=== PATIENT | female | born 1945 | race Caucasian/White ===

== ENCOUNTER → 2019-03-26 | Outpatient (CLI) | payer MEDICARE, OTHER ==
--- NOTE | 2019-03-26 13:45 | XR ---
EXAMINATION TYPE: XR Hip Limited LT DATE OF EXAM: 03/26/2019 CLINICAL HISTORY: Chronic left hip. Very low back pain TECHNIQUE: AP and frogleg views of the left hip are obtained. COMPARISON: None. FINDINGS: There is no acute fracture/dislocation evident in the left hip. The joint space in the le ft hip appears mildly narrowed in the cephalad direction with acetabular roof sclerosis and very smal l marginal osteophytes. No cam deformity is seen. No suspicious osseous lesion. The overlying soft t issue appears unremarkable. IMPRESSION: 1. No acute fracture or dislocation in the left hip. 2. Mild left femoral acetabular arthropathy.
--- NOTE | 2019-03-26 13:51 | XR ---
EXAMINATION TYPE: XR lumbar spine 2 or 3V DATE OF EXAM: 03/26/2019 CLINICAL HISTORY: Low back pain TECHNIQUE: Frontal and lateral images of the lumbar spine are obtained. COMPARISON: None FINDINGS: There is diffuse osseous demineralization present. Rudimentary 12th ribs are present. Ther e are 5 lumbar type vertebral bodies identified. The lumbar spine shows satisfactory alignment witho ut evidence of acute fracture or dislocation. Vertebral body heights and disk space heights are withi n normal limits. Mild neural foraminal narrowing is present at L5-S1 secondary to facet hypertrophy. Facet hypertrophy is also seen at L4-L5. Minimal atherosclerosis of the abdominal aorta is seen. Mini mal anterior osteophytes are present of the lumbar spine. The overlying soft tissue appears unremark able. IMPRESSION: 1. No acute fracture or dislocation is seen in the lumbar spine. 2. Mild neural foraminal narrowing at L5-S1 secondary to facet hypertrophy. Minimal multilevel degene rative changes the lumbar spine.
== END | disposition home or self-care (01) ==
LOC: RADXRMAIN 13:06
PROVIDERS: ATTEND Family Medicine
DX: M48.061 Spinal stenosis, lumbar region without neurogenic claudication (principal); M47.816 Spondylosis without myelopathy or radiculopathy, lumbar region; M16.12 Unilateral primary osteoarthritis, left hip
CPT/HCPCS: 72100; 73501

== ENCOUNTER → 2019-04-04 | Outpatient (CLI) | payer MEDICARE, OTHER ==
--- NOTE | 2019-04-04 15:01 | MR ---
EXAMINATION TYPE: MR lumbar spine wo con DATE OF EXAM: 04/04/2019 COMPARISON: Prior plain film 03/26/2019 HISTORY: low back pain TECHNIQUE: Multiplanar, multisequence images of the lumbar spine were acquired. L1-L2: Normal disc appearance without desiccation. No herniation, protrusion or disc bulging. No ca nal stenosis is present. Foramina are patent bilaterally. L2-L3: Normal disc appearance without desiccation. No herniation, protrusion or disc bulging. No ca nal stenosis is present. Foramina are patent bilaterally. L3-L4: Normal disc appearance without desiccation. No herniation, protrusion or disc bulging. No ca nal stenosis is present. Foramina are patent bilaterally. L4-L5: Facet arthropathy changes are present with hypertrophy of the ligamentum flavum. No central st enosis. Minimal anterolisthesis grade 1 L4-5. Eccentric disc bulge extends towards the right neural f oramen, there may be some mild encroachment on the right L4 nerve root. L5-S1: There is facet arthropathy present. Circumferential extension of endplate disc complex encroac hes somewhat on the foramina greater on the right than on the left. Minimal posterior broad-based dis c bulge noted. Lumbar segments are intact. No paraspinal masses are identified. Conus medullaris has a normal appe arance. There is loss of disc height and signal at L5-S1 with associated vacuum phenomenon. Mild mult ilevel spondylosis with minimal endplate discogenic marrow signal changes are present. IMPRESSION: Degenerative disc disease and facet arthropathy as described.
== END | disposition home or self-care (01) ==
LOC: RADMRIMAIN 13:14
PROVIDERS: ATTEND Family Medicine
DX: M51.36 Other intervertebral disc degeneration, lumbar region (principal); M46.96 Unspecified inflammatory spondylopathy, lumbar region; M46.97 Unspecified inflammatory spondylopathy, lumbosacral region
CPT/HCPCS: 72148

== ENCOUNTER → 2020-01-28 | Outpatient (CLI) | payer MEDICARE, OTHER ==
--- NOTE | 2020-01-28 11:57 | MM ---
Reason for exam: clinical finding. History: Patient is postmenopausal. Excisional biopsy of the right breast, 1975. Physical Findings: Nurse did not find any significant physical abnormalities on exam. MG 3D Diag Mammo W/Cad AD Bilateral CC and MLO view(s) were taken. There are scattered fibroglandular densities. No significant new findings when compared with previous films. These results were verbally communicated with the patient and result sheet given to the patient on 01/28/20. ASSESSMENT: Benign, BI-RAD 2 RECOMMENDATION: Routine screening mammogram of both breasts in 1 year.
== END | disposition home or self-care (01) ==
LOC: RADMAMWWP 10:42
PROVIDERS: ATTEND Family Medicine
DX: N64.4 Mastodynia (principal)
CPT/HCPCS: 77066; G0279; 77062

== ENCOUNTER 2022-11-12 19:30 | Emergency (ER) | payer MEDICARE, OTHER ==
[2022-11-12 19:38] VITALS: BP 156/70; PULSE 57; RESP 16; TEMP 97.9
[2022-11-12] MEDS ORDERED: ACET/COD 300 MG/30 MG STARTER PACK 6 TAB BTL PO STA (20:21)
[2022-11-12] MEDS ORDERED: Acetaminophen-Codeine 300-30mg TAB PO STA (20:21)
--- NOTE | 2022-11-12 20:28 | ED ---
General Adult HPI - General Chief complaint: Extremity Injury, Lower Stated complaint: left knee pain Time Seen by Provider: 11/12/22 20:05 Source: patient, RN notes reviewed Mode of arrival: wheelchair Limitations: physical limitation - History of Present Illness Initial comments: 77-year-old female with no significant past medical history presents to the emergency department with chief complaint of left knee pain. She reports that in early September she twisted her left knee. She was seen and evaluated by Dr. Faith, orthopedist who has done x-rays and MRIs and has diagnosed her with a torn meniscus. She reports that over the last few days she's had worsening left pain, swelling and is unable to bear weight. She is coming in to the emergency department for pain management. She has been taking Motrin 600s without relief. She denies any numbness tingling, recent falls or recent trauma. - Related Data Allergies Allergy/AdvReac Type Severity Reaction Status Date / Time chlorpheniramine AdvReac Unknown Verified 11/12/22 19:39 [From Tussionex] erythromycin base AdvReac Nausea & Verified 11/12/22 19:39 Vomiting hydrocodone [From Tussionex] AdvReac Unknown Verified 11/12/22 19:39 Review of Systems ROS Statement: Those systems with pertinent positive or pertinent negative responses have been documented in the HPI. ROS Other: All systems not noted in ROS Statement are negative. General Exam Limitations: physical limitation General appearance: alert, in no apparent distress Head exam: Present: atraumatic, normocephalic, normal inspection Eye exam: Present: normal appearance, PERRL, EOMI. Absent: scleral icterus, conjunctival injection, periorbital swelling ENT exam: Present: normal exam, mucous membranes moist Neck exam: Present: normal inspection. Absent: tenderness, meningismus, lymphadenopathy Respiratory exam: Present: normal lung sounds bilaterally. Absent: respiratory distress, wheezes, rales, rhonchi, stridor Cardiovascular Exam: Present: regular rate, normal rhythm, normal heart sounds. Absent: systolic murmur, diastolic murmur, rubs, gallop, clicks GI/Abdominal exam: Present: soft, normal bowel sounds. Absent: distended, ten derness, guarding, rebound, rigid Extremities exam: Present: normal inspection, full ROM, normal capillary refill. Absent: tenderness, pedal edema, joint swelling, calf tenderness Back exam: Present: normal inspection Neurological exam: Present: alert, oriented X3, CN II-XII intact Psychiatric exam: Present: normal affect, normal mood Skin exam: Present: warm, dry, intact, normal color. Absent: rash Course Vital Signs 11/12/22 19:31 Temperature 97.9 F Pulse Rate 57 L Respiratory 16 Rate Blood Pressure 156/70 O2 Sat by Pulse 95 Oximetry Medical Decision Making - Medical Decision Making Was pt. sent in by a medical professional or institution (, SHERRI, DRESSER TENDER, urgent care, hospital, or long-term...) When possible be specific @ -[No] Did you speak to anyone other than the patient for history (EMS, parent, family, police, friend...)? What history was obtained from this source @ -[No] Did you review nursing and triage notes (agree or disagree)? Why? @ -[I reviewed and agree with nursing and triage notes] Were old charts reviewed (outside hosp., previous admission, EMS record, old EKG, old radiological studies, urgent care reports/EKG's, long-term records)? Report findings @ -[No old charts were reviewed] Differential Diagnosis (chest pain, altered mental status, abdominal pain women, abdominal pain men, vaginal bleeding, weakness, fever, dyspnea, syncope, head ache, dizziness, GI bleed, back pain, seizure, CVA, palpatations, mental health)? @ -[not applicable] EKG interpreted by me (3pts min.). @ -[As above] X-rays interpreted by me (1pt min.). @ -[None done] CT interpreted by me (1pt min.). @ -[None done] U/S interpreted by me (1pt. min.). @ -[None done] What testing was considered but not performed or refused? (CT, X-rays, U/S, labs)? Why? @ -[None] What meds were considered but not given or refused? Why? @ -[None] Did you discuss the management of the patient with other professionals (professionals i.e. SHERRI Nixon, DRESSER TENDER, lab, RT, psych nurse, social media editor, network relations consultant, teacher, air defense control officer, case checker)? Give summary @ -[No] Was smoking cessation discussed for >3mins.? @ -[No] Was critical care preformed (if so, how long)? @ -[No] Were there social determinants of health that impacted care today? How? (Homelessness, low income, unemployed, alcoholism, drug addiction, transportation, low edu. Level, literacy, decrease access to med. care, correction, rehab)? @ -[No] Was there de-escalation of care discussed even if they declined (Discuss DNR or withdrawal of care, Hospice)? DNR status @ -[No] What co-morbidities impacted this encounter? (DM, HTN, Smoking, COPD, CAD, Cancer, CVA, ARF, Chemo, Hep., AIDS, mental health diagnosis, sleep apnea, morbid obesity)? @ -[None] Was patient admitted / discharged? Hospital course, mention meds given and route, prescriptions, significant lab abnormalities, going to OR and other pertinent info. @ -77 -year-old female presents to the emergency department with left knee pain. Patient had thorough history and physical performed, physical exam is essentially unremarkable, heart rate regular rate and rhythm lungs clear to auscultation bilaterally abdomen soft and non-tender. L knee without marked edema, erythema. Patient was tylenol with codeine and Tylenol 3 starter pack symptomatic relief while in the ED. I discussed the results in detail with the patient, all questions and concerns were addressed. Patient was encouraged to follow up with Dr. Faith in 1-2 days.. Patient was discharged in stable condition. I discussed the case with Dr. Pennington [facility] who agrees with plan of care. Undiagnosed new problem with uncertain prognosis? @ -[No] Drug Therapy requiring intensive monitoring for toxicity (Heparin, Nitro, Insulin, Cardizem)? @ -[No] Were any procedures done? @ -[No] Diagnosis/symptom? @ -Internal derrangement of L knee Acute, or Chronic, or Acute on Chronic? @ -acute Uncomplicated (without systemic symptoms) or Complicated (systemic symptoms)? @ -uncomplicated Side effects of treatment? @ -[No] Exacerbation, Progression, or Severe Exacerbation? @ -[No] Poses a threat to life or bodily function? How? (Chest pain, [place], SC, pneumonia, PE, COPD, DKA, ARF, appy, cholecystitis, CVA, Diverticulitis, Homicidal, Suicidal, threat to staff... and all critical care pts) @ -[No] Disposition Clinical Impression: Internal derangement of knee Disposition: HOME SELF-CARE Condition: Stable Additional Instructions: These return to the nearest emergency department if symptoms worsen or persist. Is patient prescribed a controlled substance at d/c from ED?: No Referrals: Miquel Arredondo MD [Primary Care Provider] - 1-2 days Castro Faith MD [STAFF PHYSICIAN] - 1-2 days Time of Disposition: 20:31
== END 2022-11-12 20:45 | disposition home or self-care (01) ==
LOC: EC 19:30
DX: M23.92 Unspecified internal derangement of left knee (principal); Z88.1 Allergy status to other antibiotic agents; Z88.5 Allergy status to narcotic agent; X50.9XXA Other and unspecified overexertion or strenuous movements or postures, initial encounter
CPT/HCPCS: 99283

== ENCOUNTER → 2023-01-22 | Outpatient (CLI) | payer MEDICARE, OTHER ==
--- NOTE | 2023-01-22 18:13 | CA ---
Transthoracic Echo Report Name: Jennifer Carmichael Age: 77 Gender: F : 1945 Exam Date: 01/22/2023 10:19 Exam Location: [place] [facility] Ht (in): 61 Wt (lb): 208 Ordering Physician: Miquel Arredondo MD Attending/Referring Phys: Miquel Arredondo MD Cooperative Extension Agent Nany Payton RDCS Procedure CPT: Indications: I10 HTN Cardiac Hx: Technical Quality: Fair Contrast 1: Total Dose (mL): Contrast 2: Total Dose (mL): MEASUREMENTS (Male / Female) Normal Values 2D ECHO LV Diastolic Diameter PLAX 3.7 cm 4.2 - 5.9 / 3.9 - 5.3 cm LV Systolic Diameter PLAX 1.6 cm IVS Diastolic Thickness 1.5 cm 0.6 - 1.0 / 0.6 - 0.9 cm LVPW Diastolic Thickness 1.2 cm 0.6 - 1.0 / 0.6 - 0.9 cm LV Relative Wall Thickness 0.7 RV Internal Dim ED PLAX 2.9 cm LA Volume 42.1 cm??? 18 - 58 / 22 - 52 cm??? M-MODE Aortic Root Diameter MM 2.9 cm LA Systolic Diameter MM 4.8 cm LA Ao Ratio MM 1.7 AV Cusp Separation MM 1.5 cm DOPPLER AV Peak Velocity 109.6 cm/s AV Peak Gradient 4.8 mmHg AV Mean Velocity 71.2 cm/s AV Mean Gradient 2.3 mmHg AV Velocity Time Integral 21.9 cm LVOT Peak Velocity 81.5 cm/s LVOT Peak Gradient 2.7 mmHg LVOT Velocity Time Integral 17.7 cm MV Area PHT 3.8 cm??? Mitral E Point Velocity 73.6 cm/s Mitral A Point Velocity 108.1 cm/s Mitral E to A Ratio 0.7 MV Deceleration Time 202.0 ms MV E' Velocity 6.2 cm/s Mitral E to MV E' Ratio 11.9 FINDINGS Left Ventricle Moderately increased left ventricular wall thickness. Left ventricular cavity size normal. Normal left ventricular systolic function with no obvious regional wall motion abnormalities. Left ventricular ejection fraction is estimated at 55-60 %. Right Ventricle Normal right ventricular size and function. Right ventricular systolic pressure within normal limits. Right Atrium Normal right atrial size. Left Atrium Normal left atrial size. Mitral Valve Structurally normal mitral valve. No mitral stenosis, regurgitation or prolapse. Aortic Valve No aortic valve stenosis or regurgitation. Tricuspid Valve Structurally normal tricuspid valve. Mild tricuspid regurgitation. Pulmonic Valve Structurally normal pulmonic valve. Pericardium No pericardial effusion. Aorta Normal size aortic root and proximal ascending aorta. CONCLUSIONS LVH with preserved LV systolic function Previewed by: Dr. Alex Hankins MD (Electronically Signed) Final Date: 22 January 2023 18:12
--- NOTE | 2023-01-22 19:55 | CA ---
Stress Echo Report Jennifer Carmichael Age: 77 Gender: F : 1945 Exam Date: 01/22/2023 10:06 Exam Location: [place] [facility] Ht (in): 61 Wt (lb): 208 Ordering Physician: Miquel Arredondo MD Referring Physician: Miquel Arredondo MD Sound Assistant: Nany Payton RDCS Technologist Procedure CPT: Indication: I10 HTN ICD-9 Codes: Rhythm: Patient History: Hyperlipidemia, Hypertension, Diabetes mellitus, Family history Cardiac Medications: Medications in past 24 hours: Contrast: Stress Results Protocol: Dl Total dose(mL): Exercise Duration (min:sec): [address] Depression (mm): Angina Score: Bocanegra Score: METS: 4.6 Resting HR: 73 Resting BP: 130 / 46 Peak HR: 122 Peak BP: 165 / 48 Max Predicted HR: 144 85 % Max Predicted HR Target HR: 122 Double Product: 93027 Stress Summary: The patient's target heart rate was achieved BP Response: Normal Reason for Termination: Reached target heart rate or work-load, Maximal effort/unable to continue Cardiac Symptoms: Fatigue ECG Analysis Resting ECG: Stress ECG: Arrhythmia: Echo Analysis Resting Echo: Peak Echo Analysis: MEASUREMENTS (Male/Female) Normal Values CONCLUSIONS Exercise stress echo Baseline heart rate 60 beats a minute, Baseline blood pressure 130/46. His mercury Baseline 12 EKG showed sinus rhythm with a 0.[address] depression inferior leads Patient exercised a Dl protocol for only 3 minutes Peak heart rate 122 beats a minute Peak blood pressure 165/48 mmHg Baseline 2-D echo showed normal LV size and systolic function without segmental wall motion abnormalities At peak exercise is excellent augmentation of overall LV contractility without development any wall motion abnormalities @Recovery regional global LV systolic function with normal No ECG abnormalities were noted with exercise Impression very low workload achieved during the stress echo No ECG or echocardiographic evidence for ischemia noted Dr. Alex Hankins MD (Electronically Signed) Final Date: 22 January 2023 19:54
== END | disposition home or self-care (01) ==
LOC: RADNMMAIN 09:45
PROVIDERS: ATTEND Family Medicine
DX: I10 Essential (primary) hypertension (principal); R07.9 Chest pain, unspecified
CPT/HCPCS: 93306; 93351

== ENCOUNTER → 2023-02-22 | Outpatient (CLI) | payer MEDICARE, OTHER ==
--- NOTE | 2023-02-23 19:56 | MM ---
Reason for Exam: Screening (asymptomatic). Last mammogram was performed 3 year(s) and 1 month(s) ago. Patient History: Menarche at age 14. First Full-Term at age 20. Hysterectomy at age 59. Postmenopausal. 1976, Excisional Biopsy on the Right side. Risk Values: Judit 5 year model risk: 1.5%. NCI Lifetime model risk: 3.1%. Prior Study Comparison: 01/28/2020 Bilateral Diagnostic Mammogram, [facility]. Tissue Density: There are scattered fibroglandular densities. Findings: Analyzed By CAD. Benign bilateral secretory and well cystic calcifications are present. Areas of regional asymmetric densities upper outer quadrant right breast remain unchanged. Palpable marker placed over the right breast for which further ultrasound evaluation is recommended. There is no suspicious group of microcalcifications or new suspicious mass in either breast. Overall Assessment: Incomplete: need additional imaging evaluation, BI-RAD 0 Management: Diagnostic Breast Ultrasound of the right breast. To the palpable and painful quadrant. Electronically signed and approved by: Jonnie Garland M.D. Radiologist
== END | disposition home or self-care (01) ==
LOC: RADMAMWWP 16:31
PROVIDERS: ATTEND Family Medicine
DX: Z12.31 Encounter for screening mammogram for malignant neoplasm of breast (principal); Z78.0 Asymptomatic menopausal state
CPT/HCPCS: 77063; 77067

== ENCOUNTER → 2023-03-01 | Outpatient (CLI) | payer MEDICARE, OTHER ==
--- NOTE | 2023-03-01 15:28 | USB ---
Reason for Exam: Additional evaluation requested from abnormal screening. Patient History: Menarche at age 14. First Full-Term at age 20. Hysterectomy at age 59. Postmenopausal. 1976, Excisional Biopsy on the Right side. Risk Values: Judit 5 year model risk: 1.5%. NCI Lifetime model risk: 3.1%. Technique: Method: Targeted. Prior Study Comparison: 01/28/2020 Bilateral Diagnostic Mammogram, [facility]. 02/22/2023 Bilateral MG 3D screening mammo w/cad, [facility]. Findings: The upper inner quadrant of the right breast, the axilla of the right breast and the retroareolar of the right breast were scanned. Targeted ultrasound right breast upper quadrant 1:00 to 3:00 including the subareolar region and axilla. * No solid or cystic lesion is seen at the patient's 2:00 palpable site. * In the lateral periareolar region, patient's chronic palpable site shows a round 5 mm lesion within the cutaneous layer. Possible debris-filled sebaceous or inclusion cyst. The patient reports that this lesion has been present for a long time. * No other solid or cystic lesion or axillary lymphadenopathy. Overall Assessment: Benign, BI-RAD 2 Management: Screening Mammogram of both breasts in 1 year. Further clinical management of any suspicious palpable abnormalities. A clinical breast exam by your physician is recommended on an annual basis and results should be correlated with mammographic findings. Results were given to the patient verbally at the time of exam. Electronically signed and approved by: Jonnie Garland M.D. Radiologist
== END | disposition home or self-care (01) ==
LOC: RADUSWWP 14:25
PROVIDERS: ATTEND Family Medicine
DX: R92.8 Other abnormal and inconclusive findings on diagnostic imaging of breast (principal); Z78.0 Asymptomatic menopausal state

== ENCOUNTER → 2023-03-28 | Outpatient (CLI) | payer MEDICARE, OTHER ==
[2023-03-28 14:14] VITALS: BP 123/75; PULSE 57; RESP 18; TEMP 97.9
--- NOTE | 2023-03-28 15:04 | P.GSHP ---
History of Present Illness H&P Date: 03/28/23 Chief Complaint: mass right breast Jennifer is a 77 year old white female seen in consultation for Dr. Miquel Arredondo regarding a mass in her right breast. She feels three lumps in her right breast about 4 months ago. They are tender . Her bilateral mammogram and [address] which was did not show any specific lesions of concern but after which [place]. [place] [id number]. The ultrasound did not show any solid or cystic lesion at the 2 o'clock position in the lateral periareolar region there was a 5 mm area within the cutaneous layer felt to be a possible sebaceous cyst. That has been present since she was a teenager. She has had several lipomas in other parts of her body in the past. She had a right breast biopsy in 1985 which was benign. Has not had any recent trauma or infection in her breast. She is not complaining of any nipple discharge or skin changes. She is not complaining of any pain right now in her breast. Caffeine: 1/2 cup coffee/day nicotine: never smoker chocolate: occasional BCP: used for about 13 years, stopped in her 30's Family history: mother: lung cancer smoker Hormonal History: menarche: 14 A1, breast fed: no, age at : 20 menopause: hysterectomy at 59 still bleeding, left ovaries hormones: none Surgical History: hysterectomy bilateral cataracts bilateral knees arthoscopic hysterectomy tonsillectomy cyst between breast and on head thumb trigger thumb Medial History; asthma diabetes arthritis decreased hearing joint pain Social History: nicotine: none alcohol: none drugs: none - Constitutional Constitutional: Denies chills, Denies fever - EENT Eyes: bilateral as per HPI (cataracts), denies blurred vision, denies pain Ears: bilateral: decreased hearing, deny: tinnitus Ears, nose, mouth and throat: Denies headache, Denies sore throat - Breasts Breasts: bilateral: as per HPI - Cardiovascular Cardiovascular: Denies chest pain, Denies shortness of breath - Respiratory Comment: asthma Respiratory: Denies cough, Denies 7 - Gastrointestinal Comment: IBS Gastrointestinal: Denies abdominal pain, Denies diarrhea, Denies nausea, Denies vomiting - Genitourinary (Female) Comment: chronic UTI Genitourinary: Denies dysuria, Denies hematuria - Menstruation Menstruation: Reports postmenopausal - Musculoskeletal Musculoskeletal: Reports as per HPI - Integumentary Integumentary: Denies pruritus, Denies rash - Neurological Neurological: Denies numbness, Denies weakness - Psychiatric Psychiatric: Reports anxiety, Reports depression - Endocrine Endocrine: Denies fatigue, Denies weight change - Hematologic/Lymphatic Comment: none - Allergic/Immunologic Allergic/Immunologic: Reports as per HPI Past Medical History History of Any Multi-Drug Resistant Organisms: None Reported Smoking Status: Never smoker Medications and Allergies Allergies Allergy/AdvReac Type Severity Reaction Status Date / Time chlorpheniramine AdvReac Unknown Verified 03/28/23 14:09 [From Tussionex] erythromycin base AdvReac Nausea & Verified 03/28/23 14:09 Vomiting hydrocodone [From Tussionex] AdvReac Unknown Verified 03/28/23 14:09 Surgical - Exam Vital Signs Temp Pulse Resp BP Pulse Ox 97.9 F 57 L 18 123/75 94 L 03/28/23 14:09 03/28/23 14:09 03/28/23 14:09 03/28/23 14:09 03/28/23 14:09 - General no distress - Eyes normal ocular movement - Neck trachea midline - Respiratory normal respiratory effort, clear to auscultation - Cardiovascular Rhythm: regular Heart Sounds: normal: S1, S2 - Abdomen Abdomen: soft, non tender, no guarding, no rigid, no rebound - Integumentary normal turgor - Neurologic no disoriented, no combative - Musculoskeletal normal gait - Psychiatric oriented to time, oriented to person, oriented to place, speech is normal, memory intact Breast Exam: BRA: 46DD Inspection: Bilateral grade 3 ptosis Palpation: Right breast: Multi-positional exam fibrocystic changes, lobulated breast tissue in the 12:00 region of the breast consistent with the area where the patient feels nodularity in 3 sites Right axilla: No adenopathy of concern Left breast: Multi-positional exam fibrocystic changes no dominant masses or nodules of concern Left axilla: No adenopathy of concern Results Mammogram and ultrasound results [place] [id number], [place] [id number] Assessment and Plan Assessment: Impression: Nodularity right breast consistent with lobulated breast tissue nothing on phy sical exam or radiographically to warrant biopsy at this time History of asthma History of diabetes Plan: bilateral mammogram in 1 year with physician exam at that time We will go over causes of mastodynia If patient notes any changes that would like to see her sooner CC: Dr. Miquel Arredondo
== END ==
LOC: WWCWWP 13:26
PROVIDERS: ATTEND Surgery
DX: N63.10 Unspecified lump in the right breast, unspecified quadrant (principal); J45.909 Unspecified asthma, uncomplicated; E11.9 Type 2 diabetes mellitus without complications; M19.90 Unspecified osteoarthritis, unspecified site; Z80.1 Family history of malignant neoplasm of trachea, bronchus and lung; Z88.1 Allergy status to other antibiotic agents; Z88.5 Allergy status to narcotic agent

== ENCOUNTER → 2024-02-15 | Outpatient (CLI) | payer MEDICARE, OTHER ==
--- NOTE | 2024-02-15 15:58 | P.PN ---
Subjective Progress Note Date: 02/15/24 02-16-24 Chief Complaint: mass right side Jennifer is a 78 year old white female seen in consultation for Dr. Miquel Arredondo on 03-28-23 regarding a mass in her right breast. She felt three lumps in her right breast about 4 months prior. They were tender . Her bilateral mammogram on did not show any specific lesions of concern but after which they recommended an ultrasound. This was performed on . The ultrasound did not show any solid or cystic lesion at the 2 o'clock position in the lateral periareolar region there was a 5 mm area within the cutaneous layer felt to be a possible sebaceous cyst. That has been present since she was a teenager. She has had several lipomas in other parts of her body in the past. She had a right breast biopsy in 1985 which was benign. She has not had any recent trauma or infection in her breast. She is not complaining of any nipple discharge or skin changes. She is not complaining of any pain right now in her breast. A bilateral mammmogram and bilateral ultrasound were done on 02-15-24. She was recommended to repeat right breast ultrasound in 6 months. These were personally reviewed. The patient fell approximately August 2023 and bruised extensively her left breast. She subsequently has 3 palpable areas in the left breast which are very tender to palpation. The ecchymosis has resolved. She is not complaining of any any other lumps masses or nodules in either breast. She is not complaining of any nipple discharge or skin changes. Caffeine: 1/2 cup coffee/day nicotine: never smoker chocolate: occasional BCP: used for about 13 years, stopped in her 30's Family history: mother: lung cancer smoker Hormonal History: menarche: 14 A1, breast fed: no, age at : 20 menopause: hysterectomy at 59 still bleeding, left ovaries hormones: none Surgical History: hysterectomy bilateral cataracts bilateral knees arthoscopic hysterectomy tonsillectomy cyst between breast and on head thumb trigger thumb Medial History; asthma diabetes arthritis decreased hearing joint pain Social History: nicotine: none alcohol: none drugs: none - Constitutional Constitutional: Denies chills, Denies fever - EENT Eyes: bilateral as per HPI (cataracts), denies blurred vision, denies pain Ears: bilateral: decreased hearing, deny: tinnitus Ears, nose, mouth and throat: Denies headache, Denies sore throat - Breasts Breasts: bilateral: as per HPI - Cardiovascular Cardiovascular: Denies chest pain, Denies shortness of breath - Respiratory Comment: asthma Respiratory: Denies cough - Gastrointestinal Comment: IBS Gastrointestinal: Denies abdominal pain, Denies diarrhea, Denies nausea, Denies vomiting - Genitourinary (Female) Comment: chronic UTI Genitourinary: Denies dysuria, Denies hematuria - Menstruation Menstruation: Reports postmenopausal - Musculoskeletal Musculoskeletal: Reports as per HPI - Integumentary Integumentary: Denies pruritus, Denies rash - Neurological Neurological: Denies numbness, Denies weakness - Psychiatric Psychiatric: Reports anxiety, Reports depression - Endocrine Endocrine: Denies fatigue, Denies weight change - Hematologic/Lymphatic Comment: none - Allergic/Immunologic Allergic/Immunologic: Reports as per HPI Past Medical History History of Any Multi-Drug Resistant Organisms: None Reported Smoking Status: Never smoker Medications and Allergies Allergies Allergy/AdvReac Type Severity Reaction Status Date / Time chlorpheniramine AdvReac Unknown Verified 03/28/23 14:09 [From Tussionex] erythromycin base AdvReac Nausea & Verified 03/28/23 14:09 Vomiting hydrocodone [From Tussionex] AdvReac Unknown Verified 03/28/23 14:09 Objective - Constitutional General appearance: Present: cooperative - EENT Eyes: Present: EOMI ENT: Present: hearing grossly normal - Neck Neck: Present: normal ROM - Respiratory Respiratory: bilateral: CTA - Cardiovascular Heart sounds: normal: S1, S2 - Gastrointestinal General gastrointestinal: Present: soft - Integumentary Integumentary: Present: normal turgor - Musculoskeletal Musculoskeletal: Present: gait normal - Psychiatric Psychiatric: Present: A&O x's 3, appropriate affect, intact judgment & insight - Additional findings Additional findings: Breast Exam: BRA: 44DD Inspection: Bilateral grade 3 ptosis Palpation: Right breast: Multi-positional exam fibrocystic changes, no dominant masses or nodules of concern Right axilla: No adenopathy of concern Left breast: Multi-positional exam fibrocystic several nodular changes in the 12 o'clock position each approximately 0.5 to 1 cm in size, these are tender to palpation Left axilla: No adenopathy of concern Assessment and Plan Assessment: Impression: Nodularity left breast tender to palpation at 12 Oclock History of trauma left breast History of asthma History of diabetes Plan: Repeat left breast ultrasound with particular attention to the 12:00 area in 6 months with examination at that time If patient notes anything of concern prior she should see us sooner CC: Dr. Miquel Arredondo
[2024-02-15 16:47] VITALS: BP 126/71; PULSE 60; RESP 17; TEMP 97.8
== END ==
LOC: WWCWWP 15:25
PROVIDERS: ATTEND Surgery
DX: N63.25 Unspecified lump in the left breast, overlapping quadrants (principal); J45.909 Unspecified asthma, uncomplicated; E11.9 Type 2 diabetes mellitus without complications; N63.10 Unspecified lump in the right breast, unspecified quadrant; Z88.5 Allergy status to narcotic agent; Z88.1 Allergy status to other antibiotic agents; Z88.8 Allergy status to other drugs, medicaments and biological substances; Z79.84 Long term (current) use of oral hypoglycemic drugs; Z98.41 Cataract extraction status, right eye; Z98.42 Cataract extraction status, left eye; Z79.899 Other long term (current) drug therapy; Z79.51 Long term (current) use of inhaled steroids; Z87.828 Personal history of other (healed) physical injury and trauma

== ENCOUNTER → 2024-02-15 | Outpatient (CLI) | payer MEDICARE, OTHER ==
--- NOTE | 2024-02-15 14:44 | USB ---
Patient History: Menarche at age 14. First Full-Term at age 20. Hysterectomy at age 59. Postmenopausal. 1975, Excisional Biopsy on the Right side. Risk Values: Judit 5 year model risk: 1.5%. NCI Lifetime model risk: 2.9%. Technique: Method: Targeted. Prior Study Comparison: 01/28/2020 Bilateral Diagnostic Mammogram, [facility]. 02/22/2023 Bilateral MG 3D screening mammo w/cad, [facility]. Findings: The lateral section of the breast of the right breast, the area of palpable concern of the left breast and the retroareolar of both breasts were scanned. Technique utilized:US breast limited BILAT Image; Ultrasound imaging of: All 4 quadrants, the retroareolar region and axilla. Suspected postprocedural changes right breast at 10:00 10 cm from nipple in the area of concern on mammography same day. Follow-up in 6 months recommended to ensure stability. Left breast multiple irregular areas identified by litigation counsel. These are thought to be sequela of prior trauma reported by patient. These also be followed up to ensure resolution in 6 months. No additional organizing fluid collections or masses identified. Overall Assessment: Probably benign, BI-RAD 3 Management: Diagnostic Breast Ultrasound of the right breast in 6 months. A clinical breast exam by your physician is recommended on an annual basis and results should be correlated with mammographic findings. This exam should not preclude additional follow-up of suspicious palpable abnormalities. Results were given to the patient verbally at the time of exam. Electronically signed and approved by: Ryan Salmeron DO
== END | disposition home or self-care (01) ==
LOC: RADMAMWWP 13:37
PROVIDERS: ATTEND Family Medicine
DX: N64.4 Mastodynia (principal); Z78.0 Asymptomatic menopausal state
CPT/HCPCS: 77066; 76642; G0279; 77062

== ENCOUNTER → 2024-08-20 | Outpatient (CLI) | payer MEDICARE, OTHER ==
--- NOTE | 2024-08-20 14:28 | MM ---
Reason for Exam: Follow-up at short interval from prior study. Last screening mammogram was performed 6 month(s) ago. Patient History: Menarche at age 14. First Full-Term at age 20. Hysterectomy at age 59. Postmenopausal. 1976, Excisional Biopsy on the Right side. Risk Values: Judit 5 year model risk: 1.5%. NCI Lifetime model risk: 2.9%. Tissue Density: There are scattered areas of fibroglandular density. Findings: Analyzed By CAD. The pattern is symmetrical. Focal asymmetry is without any upper outer right breast. Some chronic nodularity within the anterior upper right breast. No suspicious groups of microcalcifications, spiculated or lobular masses, architectural distortion or other secondary signs of malignancy are mammographically apparent. Overall Assessment: Benign, BI-RAD 2 Management: Diagnostic Breast Ultrasound of both breasts. A negative mammogram report should not preclude additional follow up of suspicious palpable abnormalities. Patient should continue monthly self breast exam. A clinical breast exam by your physician is recommended on an annual basis and results should be correlated with mammographic findings. Note on Judit scores and lifetime risk: 1. A Judit score greater than 3% is considered moderate risk. If this is the case, consider specialist referral to assess eligibility for a risk reducing agent. 2. If overall lifetime risk for the development of breast cancer is 20% or higher, the patient may qualify for future screening with alternating mammogram and breast MRI. [facility], , 08/20/2024 2:24 PM. Electronically signed and approved by: Jon Ruano D.O. Radiologis
--- NOTE | 2024-08-20 14:56 | USB ---
Reason for Exam: Follow-up at short interval from prior study. Patient History: Menarche at age 14. First Full-Term at age 20. Hysterectomy at age 59. Postmenopausal. 1975, Excisional Biopsy on the Right side. Risk Values: Judit 5 year model risk: 1.5%. NCI Lifetime model risk: 2.9%. Technique: Method: Targeted. Prior Study Comparison: 01/28/2020 Bilateral Diagnostic Mammogram, [facility]. 02/22/2023 Bilateral MG 3D screening mammo w/cad, [facility]. 02/15/2024 Bilateral MG 3D diag mammo w/cad [facility], [facility]. Findings: The upper section of the breast of the right breast, the upper inner quadrant of the left breast, the axilla of both breasts and the retroareolar of both breasts were scanned. No solid or cystic masses are identified. No significant interval changes are evident. Within the left breast at the 10 to 11:00 position there are several small cystlike areas. Overall Assessment: Probably benign, BI-RAD 3 Management: Screening Mammogram of both breasts in 6 months. A clinical breast exam by your physician is recommended on an annual basis and results should be correlated with mammographic findings. This exam should not preclude additional follow-up of suspicious palpable abnormalities. Results were given to the patient verbally at the time of exam. [facility], , 08/20/2024 2:52 PM. Electronically signed and approved by: Jon Ruano D.O. Radiologis
== END | disposition home or self-care (01) ==
LOC: RADMAMWWP 13:50
PROVIDERS: ATTEND Surgery
DX: R92.8 Other abnormal and inconclusive findings on diagnostic imaging of breast (principal); Z78.0 Asymptomatic menopausal state; R92.323 Mammographic fibroglandular density, bilateral breasts
CPT/HCPCS: 77066; 76642; G0279; 77062

== ENCOUNTER → 2024-09-05 | Outpatient (CLI) | payer MEDICARE, OTHER ==
[2024-09-05 11:44] VITALS: BP 111/65; PULSE 65; RESP 17; TEMP 98.5
--- NOTE | 2024-09-05 11:55 | P.PN ---
Subjective Progress Note Date: 09/05/24 09-05-24 Chief Complaint: mass right breast Jennifer is a 79 year old white female seen in consultation for Dr. Miquel Arredondo regarding a mass in her right breast. She felt three lumps in her right. They were tender . Her bilateral mammogram on did not show any specific lesions of concern but after which they recommended an ultrasound. This was performed on . The ultrasound did not show any solid or cystic lesion at the 2 o'clock position in the lateral periareolar region there was a 5 mm area within the cutaneous layer felt to be a possible sebaceous cyst. That has been present since she was a teenager. She has had several lipomas in other parts of her body in the past. She had a right breast biopsy in 1985 which was benign. Has not had any recent trauma or infection in her breast. She is not complaining of any nipple discharge or skin changes. She is not complaining of any pain right now in her breast. bilateral mammogram 08-20-24 BIRAD 2 personally interpreted; ultrasound done on 08-20-2024 revealed in the left breast at the 10 to 11 o'clock position several small cystic areas the overall assessment was BI-RADS 3 and recommendation for screening mammogram of both breast in 6 months I have discussed this with the patient and she understands the recommendation but states that she will have a bilateral mammogram in 1 year if she notes anything of concern she will follow-up sooner Judit Risk: 5 year : 1.5% lifetime risk: 2.9% Caffeine: 1/2 cup coffee/day nicotine: never smoker chocolate: occasional BCP: used for about 13 years, stopped in her 30's Family history: mother: lung cancer smoker Hormonal History: menarche: 14 A1, breast fed: no, age at : 20 menopause: hysterectomy at 59 still bleeding, left ovaries hormones: none Surgical History: hysterectomy bilateral cataracts bilateral knees arthoscopic hysterectomy tonsillectomy cyst between breast and on head thumb trigger thumb Medial History; asthma diabetes arthritis decreased hearing joint pain Social History: nicotine: none alcohol: none drugs: none - Constitutional Constitutional: Denies chills, Denies fever - EENT Eyes: bilateral as per HPI (cataracts), denies blurred vision, denies pain Ears: bilateral: decreased hearing, deny: tinnitus Ears, nose, mouth and throat: Denies headache, Denies sore throat - Breasts Breasts: bilateral: as per HPI - Cardiovascular Cardiovascular: Denies chest pain, Denies shortness of breath - Respiratory Comment: asthma Respiratory: Denies cough - Gastrointestinal Comment: IBS Gastrointestinal: Denies abdominal pain, Denies diarrhea, Denies nausea, Denies vomiting - Genitourinary (Female) Comment: chronic UTI Genitourinary: Denies dysuria, Denies hematuria - Menstruation Menstruation: Reports postmenopausal - Musculoskeletal Musculoskeletal: Reports as per HPI - Integumentary Integumentary: Denies pruritus, Denies rash - Neurological Neurological: Denies numbness, Denies weakness - Psychiatric Psychiatric: Reports anxiety, Reports depression - Endocrine Endocrine: Denies fatigue, Denies weight change - Hematologic/Lymphatic Comment: none - Allergic/Immunologic Allergic/Immunologic: Reports as per HPI Past Medical History History of Any Multi-Drug Resistant Organisms: None Reported Smoking Status: Never smoker Medications and Allergies Allergies Allergy/AdvReac Type Severity Reaction Status Date / Time chlorpheniramine AdvReac Unknown Verified 03/28/23 14:09 [From Tussionex] erythromycin base AdvReac Nausea & Verified 03/28/23 14:09 Vomiting hydrocodone [From Tussionex] AdvReac Unknown Verified 03/28/23 14:09 Objective - Vital Signs Vital signs: Vital Signs Temp 98.5 F 09/05/24 11:41 Pulse 65 09/05/24 11:41 Resp 17 09/05/24 11:41 BP 111/65 09/05/24 11:41 Pulse Ox 93 L 09/05/24 11:41 FiO2 Intake & Output 09/04/24 09/05/24 09/05/24 18:59 06:59 18:59 Weight 83.915 kg - Constitutional General appearance: Present: cooperative - EENT Eyes: Present: EOMI ENT: Present: hearing grossly normal - Neck Neck: Present: normal ROM - Respiratory Respiratory: bilateral: CTA - Cardiovascular Rhythm: regular Heart sounds: normal: S1, S2 - Integumentary Integumentary: Present: normal turgor - Musculoskeletal Musculoskeletal: Present: gait normal - Psychiatric Psychiatric: Present: A&O x's 3, appropriate affect, intact judgment & insight - Additional findings Additional findings: Breast Exam: BRA: 46DD Inspection: Bilateral grade 3 ptosis Palpation: Right breast: Multi-positional exam fibrocystic changes, lobulated breast tissue in the 12:00 region of the right breast resolved Right axilla: No adenopathy of concern Left breast: Multi-positional exam fibrocystic changes no dominant masses or nodules of concern Left axilla: No adenopathy of concern Assessment and Plan Assessment: Impression: Nodularity right breast consistent with lobulated breast tissue nothing on physical exam or radiographically to warrant biopsy at this time History of asthma History of diabetes Plan: Mammogram 08-20-2024 BI-RADS 2 Bilateral ultrasound 08-20-2024 BI-RADS 3 recommendation for repeat bilateral mammogram in 6 months, the patient understands this recommendation however at this time she is going to go for 1 year instead of 6 months and will call us if she notes anything sooner bilateral mammogram in 1 year, August 2025 with physician exam at that time If patient notes any changes that would like to see her sooner CC: Dr. Miquel Arredondo
== END ==
LOC: WWCWWP 11:03
PROVIDERS: ATTEND Surgery
DX: N63.10 Unspecified lump in the right breast, unspecified quadrant (principal); E11.36 Type 2 diabetes mellitus with diabetic cataract; J45.909 Unspecified asthma, uncomplicated; Z88.5 Allergy status to narcotic agent; Z88.1 Allergy status to other antibiotic agents; Z79.84 Long term (current) use of oral hypoglycemic drugs; Z79.899 Other long term (current) drug therapy; Z79.51 Long term (current) use of inhaled steroids

== ENCOUNTER → 2025-01-06 | Outpatient (CLI) | payer MEDICARE, OTHER ==
--- NOTE | 2025-01-06 14:43 | MR ---
EXAMINATION TYPE: MR shoulder RT wo con DATE OF EXAM: 01/06/2025 1:41 PM COMPARISON: None. CLINICAL INDICATION: Female, 79 years old with history of M25.511 R SHOULDER PAIN, Rt shoulder pain f or 4 years, RTC tear IV Contrast: cc (None if empty) TECHNIQUE: Multiplanar, multisequence imaging of the right shoulder is performed without contrast. FINDINGS: Rotator Cuff: Increased signal in the infraspinatus tendon but it is intact. There is full-thickness retracted tear of the supraspinatus tendon with stump retraction to level of the acromioclavicular stephanie int. Intact subscapularis tendon. Some surrounding fluid anterior to the glenoid is seen. Rotator cuf f muscle bulk is preserved. Acromioclavicular Joint: Severe narrowing with mild to moderate spurring and superior capsular hypert rophy. Glenohumeral Joint: Moderate size joint effusion. Narrowing is present. No significant spurring. Labrum: Blunting and increased signal superior labrum consistent with tear. Biceps Tendon: The long head of biceps is in normal location within bicipital groove. Bone marrow signal: No focal abnormal marrow signal is appreciated. Other: No additional significant abnormality is appreciated. IMPRESSION: 1. Full-thickness retracted tear of the supraspinatus tendon. 2. Superior labral tear. At least moderate degenerative changes are present as detailed above. [facility], , 01/06/2025 2:40 PM
== END | disposition home or self-care (01) ==
LOC: RADMRIMAIN 13:04
PROVIDERS: ATTEND Orthopaedic Surgery
DX: M75.111 Incomplete rotator cuff tear or rupture of right shoulder, not specified as traumatic (principal); M19.011 Primary osteoarthritis, right shoulder